=== PATIENT | female | born 1960 | race African-American/Black ===

== ENCOUNTER 2019-12-31 00:48 | Inpatient (IN) | payer OTHER ==
[2019-12-31] VITALS (9 sets, daily range): BP systolic 148–168; BP diastolic 74–104
[~2019-12-31] VITALS: Ht 170.2 cm; Wt 102.1 kg
[2019-12-31] MEDS ORDERED: METHYLPREDNISOLONE SOD SUCC 125 MG/2 ML VIAL IV STA (01:04)
[2019-12-31] MEDS ORDERED: ASPIRIN 81MG TABLET PO ONE (01:15)
[2019-12-31] MEDS ORDERED: MAGNESIUM 2 G PREMIX 50 ML IV ONE (01:15)
[2019-12-31] MEDS ORDERED: NITROGLYCERIN 50MG PREMIX 250 ML IV ONE (01:15)
[2019-12-31 01:46] LABS: BASOPHILS % 0.6 % (0.0-2.0); EOSINOPHILS % 3.4 % (0.0-5.0); HEMATOCRIT. 30.3 % (36.0-48.0); HEMOGLOBIN. 9.9 g/dL (12.0-16.0); LYMPHOCYTES % 47.1 % (20.0-50.0); MEAN CORPUSCULAR HEMOGLOBIN 32.1 pg (28.0-32.0); MEAN CORPUSCULAR VOLUME 97.9 fL (81.0-99.0); MEAN PLATELET VOLUME 10.5 fl (7.4-10.4); MONOCYTES % 7.8 % (2.0-8.0); NEUTROPHILS % 41.1 % (40.0-76.0); PLATELET 203 x1000/uL (130-400); RED CELL DISTRIBUTION WIDTH 13.6 % (11.6-14.6)
[2019-12-31 01:51] LABS: CHLORIDE 111 mEq/L (98-107)
[2019-12-31 01:58] LABS: ETHANOL BLOOD < 10 mg/dL
[2019-12-31] MEDS ORDERED: GUAIFENESIN 200MG/10ML SUGAR FREE UDC PO PRN (05:45)
[2019-12-31] MEDS ORDERED: DOCUSATE SODIUM 100MG CAPSULE PO PRN (05:45)
[2019-12-31] MEDS ORDERED: ACETAMINOPHEN 325MG TABLET PO PRN (05:45)
[2019-12-31] MEDS ORDERED: MAGNESIUM/ALUMINUM HYDROXIDE/SIMETHICONE 30ML UDC PO PRN (05:45)
[2019-12-31] MEDS ORDERED: CLONIDINE 0.1MG TABLET PO PRN (05:45)
[2019-12-31] MEDS ORDERED: ONDANSETRON HCL 4MG/2ML INJ IV PRN (05:45)
[2019-12-31] MEDS ORDERED: MORPHINE SULFATE 2 MG/ML CPJ (NOT FOR IM USE) IV PRN (05:45)
[2019-12-31] MEDS: AMLODIPINE 10MG TABLET PO SCH (06:59)
[2019-12-31] MEDS: FUROSEMIDE 40MG/4ML VIAL IV SCH (07:00)
[2019-12-31] MEDS ORDERED: ENOXAPARIN 40MG/0.4ML SYR SUBCUT SCH (09:00)
[2019-12-31] MEDS ORDERED: LISI-604 PO (12:36)
[2019-12-31] MEDS ORDERED: ASPI-1497 PO (12:36)
[2019-12-31] MEDS ORDERED: BUSP15TA3 PO (12:36)
[2019-12-31] MEDS ORDERED: ZIPR40CA13 PO (12:36)
[2019-12-31] MEDS ORDERED: ESCI20TA43 PO (12:36)
[2019-12-31] MEDS ORDERED: VARE1TAB21 PO (12:36)
[2019-12-31] MEDS ORDERED: ATEN50TA PO (12:36)
[2019-12-31] MEDS ORDERED: MIRT15TA6 PO (12:36)
[2019-12-31] MEDS ORDERED: MELA5TAB19 MT (12:36)
[2019-12-31] MEDS: LISINOPRIL 20MG TABLET PO SCH (12:44)
[2019-12-31] MEDS ORDERED: MIRT7.5T11 PO (12:58)
[2019-12-31] MEDS ORDERED: ESCI5SOL2 PO (12:58)
[2019-12-31] MEDS ORDERED: BUSP10TA3 PO (12:58)
[2019-12-31] MEDS ORDERED: ESCITALOPRAM OXALATE 30 MG PO SCH (21:00)
[2019-12-31] MEDS ORDERED: MEDICATION NOT ON FORMULARY EA (Melatonin 1 TAB) MT SCH (21:00)
[2019-12-31] MEDS ORDERED: POTASSIUM CHLORIDE 20MEQ TABLET SR PO NR (21:00)
[2019-12-31] MEDS ORDERED: MIRTAZAPINE 15MG TABLET PO SCH (22:00)
[2019-12-31] MEDS ORDERED: ZIPRASIDONE HCL 40MG CAPSULE PO SCH (23:00)
[2019-12-31] MEDS ORDERED: CITALOPRAM HYDROBROMIDE 10MG TABLET PO SCH (23:00)
[2020-01-01] VITALS (9 sets, daily range): BP systolic 133–166; BP diastolic 83–109
[2020-01-01] MEDS: IPRATROPIUM/ALBUTEROL 0.5-3(2.5)MG/3ML NEB HHN PRN ×2 (00:48→05:17)
[2020-01-01 07:06] LABS: BASOPHILS % 0.1 % (0.0-2.0); HEMATOCRIT. 31.6 % (36.0-48.0); HEMOGLOBIN. 10.3 g/dL (12.0-16.0); LYMPHOCYTES % 9.3 % (20.0-50.0); MEAN CORPUSCULAR HEMOGLOBIN 31.5 pg (28.0-32.0); MEAN CORPUSCULAR VOLUME 96.5 fL (81.0-99.0); MEAN PLATELET VOLUME 11.6 fl (7.4-10.4); MONOCYTES % 9.9 % (2.0-8.0); NEUTROPHILS % 80.7 % (40.0-76.0); PLATELET 185 x1000/uL (130-400); RED BLOOD CELL COUNT 3.27 mill/uL (4.2-5.4); RED CELL DISTRIBUTION WIDTH 13.5 % (11.6-14.6)
[2020-01-01 07:22] LABS: CHLORIDE 105 mEq/L (98-107)
[2020-01-01 07:23] LABS: LDL CHOLESTEROL 166 mg/dL (5-100)
[2020-01-01 07:26] LABS: HDL CHOLESTEROL 60 mg/dL (40-59)
[2020-01-01] MEDS: BUSPIRONE HCL 10MG TABLET PO SCH ×2 (08:40→12:01)
[2020-01-01] MEDS: FUROSEMIDE 40MG/4ML VIAL IV SCH (08:41)
[2020-01-01] MEDS: LISINOPRIL 20MG TABLET PO SCH (08:41)
[2020-01-01] MEDS: AMLODIPINE 10MG TABLET PO SCH (08:41)
[2020-01-01] MEDS ORDERED: VARENICLINE TARTRATE 1 MG PO SCH (09:00)
[2020-01-01] MEDS ORDERED: ENOXAPARIN 30MG/0.3ML SYR SUBCUT SCH (09:00)
[2020-01-01] MEDS ORDERED: BUSPIRONE HCL 10MG TABLET PO SCH (09:00)
[2020-01-01] MEDS ORDERED: ASPIRIN 81MG EC TABLET PO SCH (09:00)
[2020-01-01] MEDS ORDERED: CLOPIDOGREL 75MG TABLET PO SCH (11:30)
[2020-01-01] MEDS ORDERED: HYDRALAZINE HCL 25MG TABLET PO SCH (11:30)
[2020-01-01] MEDS ORDERED: ZIPRASIDONE HCL 40MG CAPSULE PO SCH (18:00)
[2020-01-01] MEDS ORDERED: ATORVASTATIN CALCIUM 40MG TABLET PO SCH (21:00)
== END 2020-01-01 15:50 | disposition home or self-care (01) | DRG 291 ==
LOC: ER 00:48 → 5EST 02:03 → ENRESERV 07:45
PROVIDERS: ADMIT Hospitalist; ATTEND Hospitalist
PROC: 5A09357 Assistance with Respiratory Ventilation, Less than 24 Consecutive Hours, Continuous Positive Airway Pressure (ICD-10-PCS; principal; 2019-12-31)
DX: I13.0 Hypertensive heart and chronic kidney disease with heart failure and stage 1 through stage 4 chronic kidney disease, or unspecified chronic kidney disease (principal); I50.43 Acute on chronic combined systolic (congestive) and diastolic (congestive) heart failure; J96.01 Acute respiratory failure with hypoxia; E44.1 Mild protein-calorie malnutrition; E87.2 Acidosis; N17.9 Acute kidney failure, unspecified; D63.8 Anemia in other chronic diseases classified elsewhere; D72.829 Elevated white blood cell count, unspecified; E78.00 Pure hypercholesterolemia, unspecified; E78.5 Hyperlipidemia, unspecified; E87.6 Hypokalemia; R74.01 Elevation of levels of liver transaminase levels; N18.9 Chronic kidney disease, unspecified; F41.9 Anxiety disorder, unspecified; F17.210 Nicotine dependence, cigarettes, uncomplicated; F32.9 Major depressive disorder, single episode, unspecified; J45.909 Unspecified asthma, uncomplicated; Z83.3 Family history of diabetes mellitus; Z90.710 Acquired absence of both cervix and uterus; Z79.82 Long term (current) use of aspirin; Z79.899 Other long term (current) drug therapy
CPT/HCPCS: 36415; 71045; 80053; 80061; 80320; 82962; 83605; 83880; 84145; 84484; 85025; 93005; 93306; 93970; 94618; 99291; J1650; J1940; J2930; J3475; J3490; G0480